=== PATIENT | female | born 1995 | race Caucasian/White ===

== ENCOUNTER → 2023-06-21 14:37 | Outpatient (BNVA) | payer BC, MEDICAID, SELFPAY | PROVIDERS: PCP Family Medicine; Visit Provider Obstetrics & Gynecology | DX: Z34.01 Encounter for supervision of normal first pregnancy, first trimester (principal) | CPT/HCPCS: 76801 ==

== ENCOUNTER → 2023-06-23 13:00 | Outpatient (BNVA) | payer BC, MEDICAID, SELFPAY | PROVIDERS: PCP Family Medicine; Visit Provider Obstetrics & Gynecology | DX: Z34.80 Encounter for supervision of other normal pregnancy, unspecified trimester | CPT/HCPCS: 80307; 83036; 84315; 85025; 86592; 86762; 86803; 86850; 86900; 87086; 87340; 87491; 87591; 87624; 87806 ==

== ENCOUNTER → 2023-07-19 15:45 | Outpatient (BNVA) | payer BC, MEDICAID, SELFPAY | PROVIDERS: PCP Family Medicine; Visit Provider Nurse Practitioner Women's Health | DX: Z34.90 Encounter for supervision of normal pregnancy, unspecified, unspecified trimester (principal); Z3A.00 Weeks of gestation of pregnancy not specified | CPT/HCPCS: 82105; 84315 ==

== ENCOUNTER → 2023-08-07 13:03 | Outpatient (BNVA) | payer BC, MEDICAID, SELFPAY | PROVIDERS: PCP Family Medicine; Visit Provider Obstetrics & Gynecology | DX: Z34.01 Encounter for supervision of normal first pregnancy, first trimester (principal) | CPT/HCPCS: 82105 ==

== ENCOUNTER → 2023-08-17 09:25 | Outpatient (BNVA) | payer BC, MEDICAID, SELFPAY | PROVIDERS: PCP Family Medicine; Visit Provider Nurse Practitioner Women's Health | DX: Z34.90 Encounter for supervision of normal pregnancy, unspecified, unspecified trimester (principal) | CPT/HCPCS: 76805 ==

== ENCOUNTER → 2023-09-20 08:45 | Outpatient (BNVA) | payer BC, MEDICAID, SELFPAY | PROVIDERS: PCP Family Medicine; Visit Provider Obstetrics & Gynecology | DX: Z36.87 Encounter for antenatal screening for uncertain dates (principal) | CPT/HCPCS: 76816 ==

== ENCOUNTER → 2023-09-22 09:38 | Outpatient (BNVA) | payer BC, MEDICAID, SELFPAY | PROVIDERS: PCP Family Medicine; Visit Provider Nurse Practitioner Women's Health | DX: Z34.01 Encounter for supervision of normal first pregnancy, first trimester (principal); Z34.90 Encounter for supervision of normal pregnancy, unspecified, unspecified trimester | CPT/HCPCS: 81000; 82950 ==

== ENCOUNTER → 2023-10-05 14:39 | Outpatient (BNVA) | payer BC, MEDICAID, SELFPAY | PROVIDERS: PCP Family Medicine; Visit Provider Obstetrics & Gynecology | DX: Z34.01 Encounter for supervision of normal first pregnancy, first trimester (principal) | CPT/HCPCS: 80053; 85025 ==

== ENCOUNTER → 2023-10-13 08:46 | Outpatient (BNVA) | payer BC, MEDICAID, SELFPAY | PROVIDERS: PCP Family Medicine; Visit Provider Obstetrics & Gynecology | DX: Z34.90 Encounter for supervision of normal pregnancy, unspecified, unspecified trimester (principal) | CPT/HCPCS: 81000; 85025 ==

== ENCOUNTER → 2023-11-24 08:01 | Outpatient (BNVA) | payer BC, MEDICAID, SELFPAY | PROVIDERS: PCP Family Medicine; Visit Provider Nurse Practitioner Women's Health | DX: Z34.80 Encounter for supervision of other normal pregnancy, unspecified trimester (principal) | CPT/HCPCS: 80053; 82570; 84156; 84315; 84550; 85025 ==

== ENCOUNTER 2023-11-26 07:52 | Observation (INO) | payer BC, MEDICAID, SELFPAY ==
[2023-11-25] VITALS (20 sets, daily range): BP systolic 116–133; BP diastolic 57–83; PULSE 82–112; RESP 16–18; O2SAT 96–98; BMI 28.3
--- NOTE | 2023-11-25 17:12 | USR_ITS ---
PROCEDURE INFORMATION: Exam: US Abdomen, Limited; Right Upper Quadrant Exam date and time: 11/25/2023 6:00 PM Age: 28 years old Clinical indication: Abdominal pain; Generalized; ; Prior surgery; Surgery date: 6+ months; Surgery type: HX of appendectomy; Additional info: Right upper quadrant abdominal pain TECHNIQUE: Imaging protocol: Real time ultrasound of the abdomen with image documentation. Limited exam focused on the right upper quadrant. COMPARISON: [place] [id number] 09/20/2023 8:53 AM FINDINGS: Liver: Liver is enlarged measuring 17 cm. The liver is otherwise unremarkable. Gallbladder: The gallbladder is contracted. Gallbladder wall measures 3 mm. Echogenic ovoid structure in the gallbladder neck, only visualized on the decubitus views. Biliary ducts: There is no evidence of biliary ductal dilation. CBD measures 0.3 cm. Pancreas: Pancreas is obscured by bowel gas. Right kidney: Right kidney measures 10.4 cm. Right kidney has a normal corticomedullary differentiation and parenchymal echogenicity. Mild right kidney pelviectasis. There is no evidence of right hydronephrosis. Portal venous: Portal vein is patent with adequate hepatopedal flow. US/US gall bladder [id number] IMPRESSION: 1. Echogenic ovoid structure in the gallbladder neck, only visualized on the decubitus views. Concerning for a gallstone. 2. Although the mild gallbladder wall thickening is likely related to gallbladder under distension, the presence of a possible gallstone raises the question of early cholecystitis. Close follow-up is advised. 3. Hepatomegaly. 4. Mild right kidney pelviectasis. This is likely related.
[2023-11-25] MEDS: lactated ringers 1,000 ML 999 ML IV (17:30)
[2023-11-25 17:40] LABS: Add Urine Microscopic? NO; Charge for UA Resulting for Rev
[2023-11-25] MEDS: acetaminophen 500 mg Tablet 1000 MG PO (17:40)
[2023-11-25 17:44] LABS: Bilirubin Urine Neg (Negative); Blood Urine Neg (Negative); Glucose Urine UA Norm (Normal); Ketones Urine Negative (Negative); Leukocyte Esterase Urine Negative (Negative); Nitrate Urine Negative (Negative); Protein Urine Neg (Negative); Specific Gravity, Urine 1.005 (1.005-1.030); Urine Appearance Clear (CLEAR); Urine Color Yellow (Yellow); Urobilinogen Urine Norm (Negative); pH Urine 7 (5-7)
[2023-11-25] MEDS: ondansetron 2 mg/ML SDV 2 mL 4 MG IVP (18:27)
[2023-11-25 18:45] LABS: Alanine Aminotransferase 14 U/L (0-33); Albumin Level 3.5 g/dL (3.5-5.2); Alkaline Phosphatase 127 U/L (35-105); Anion Gap 15.1 (5-19); Aspartate Amino Transferase 26 U/L (0-32); Blood Urea Nitrogen 5 mg/dL (6-20); Calcium 8.3 mg/dL (8.5-10.5); Carbon Dioxide 21 mmol/L (22-29); Chloride 107 mmol/L (98-107); Creatinine Clr Calc Pharmacy 216.9276; Glomerular Filtration Rate 191.5 mL/min (90-130); Glucose 88 mg/dL (65-115); Osmolality Calculated 285 mOsm/kg (285-295); Potassium 4.1 mmol/L (3.5-5.1); Sodium 139 mmol/L (136-145); Total Bilirubin 0.5 mg/dL (0.15-1.2); Total Protein 6.5 g/dL (6.6-8.7)
[2023-11-25] MEDS: NIFEdipine 10 mg Capsule 30 MG PO (19:21)
[2023-11-25] MEDS: fentaNYL 50 mcg/mL INJ 2mL IVP ×4 (19:45→23:26)
[2023-11-26] VITALS (10 sets, daily range): BP systolic 108–124; BP diastolic 55–76; PULSE 65–96; RESP 16–18; TEMP 36.8
[2023-11-26] MEDS: acetaminophen 500 mg Tablet 1000 MG PO (05:02)
== END 2023-11-26 10:43 | disposition home or self-care (01) ==
LOC: OPOB 07:56 → OBGYN 07:56
PROVIDERS: Admitting Provider Obstetrics & Gynecology; PCP Family Medicine; Visit Provider Obstetrics & Gynecology
DX: R10.11 Right upper quadrant pain (principal); K82.9 Disease of gallbladder, unspecified
CPT/HCPCS: 36415; 59025; 76705; 80053; 81003; 96374; 96376; 99211; G0378; J2405; J3010; J7120

== ENCOUNTER → 2023-12-08 07:51 | Outpatient (BNVA) | payer BC, MEDICAID, SELFPAY | PROVIDERS: PCP Family Medicine; Visit Provider Obstetrics & Gynecology | DX: Z34.01 Encounter for supervision of normal first pregnancy, first trimester (principal) | CPT/HCPCS: 80053; 84315; 85025; 87081 ==

== ENCOUNTER 2023-12-22 09:30 | Outpatient (CLI) | payer BC, MEDICAID, SELFPAY ==
[2023-12-22] VITALS (8 sets, daily range): BP systolic 138–152; BP diastolic 73–97; PULSE 53–64; BMI 29.7
--- NOTE | 2023-12-22 10:10 | USR_ITS ---
PROCEDURE INFORMATION: Exam: US Biophysical Profile Without Non-Stress Test Exam date and time: 12/22/2023 10:40 AM Age: 28 years old Clinical indication: Pancreas blood pressure; TECHNIQUE: Imaging protocol: US biophysical profile without non-stress testing. COMPARISON: [place] [id number] 09/20/2023 8:53 AM FINDINGS: Single, live intrauterine gestation with heart rate of 147 bpm. The maximum vertical pocket of amniotic fluid is 3.2 cm. There is normal extremity motion and tone. There is poor breathing motion. US/US OB BPP wo NST [id number] IMPRESSION: 1. Single, live intrauterine gestation. 2. Biophysical profile 11/17.
[2023-12-22 10:19] LABS: Basophils % 0.3 %; Eosinophils # 0.1 10^3/uL (0.0-0.8); Eosinophils % 0.8 %; Hematocrit 39.3 % (36-47); Lymphocytes # 1.2 10^3/uL (0.8-4.8); Lymphocytes % 13.3 %; Mean Corpuscular HGB Conc 32.6 g/dL (30-55); Mean Corpuscular Volume 92.3 fl (85-98); Mean Platelet Volume 11.7 fL (7.4-10.4); Monocytes # 0.6 10^3/uL (0.2-0.9); Monocytes % 6.2 %; Neutrophils % 78.9 %; Nucleated Red Blood Cells % 0 %; Platelet Count 143 10^3/cmm (157-399); Red Blood Count 4.26 10^6/uL (3.85-5.65); Red Cell Distribution Width 13.6 % (12.1-15.1); White Blood Count 9.25 10^3/uL (3.29-11.43)
[2023-12-22 10:26] LABS: Bilirubin Urine Neg (Negative); Blood Urine Neg (Negative); Glucose Urine UA Norm (Normal); Ketones Urine Negative (Negative); Leukocyte Esterase Urine Negative (Negative); Nitrate Urine Negative (Negative); Protein Urine 2+ (Negative); Urine Appearance Clear (CLEAR); Urine Color Yellow (Yellow); Urobilinogen Urine Neg (Negative); pH Urine 7 (5-7)
[2023-12-22 10:27] LABS: RBC Urine 0-4 /hpf (0-2); WBC Urine 0-4 /hpf (0-5)
[2023-12-22 10:28] LABS: Bacteria Urine 1+ /hpf
[2023-12-22 10:29] LABS: Add Urine Culture? No; Mucus Urine TRACE /hpf
[2023-12-22 10:35] LABS: Alanine Aminotransferase 7 U/L (0-33); Albumin Level 3.5 g/dL (3.5-5.2); Alkaline Phosphatase 139 U/L (35-105); Anion Gap 14.2 (5-19); Aspartate Amino Transferase 20 U/L (0-32); Blood Urea Nitrogen 8 mg/dL (6-20); Calcium 8.6 mg/dL (8.5-10.5); Carbon Dioxide 22 mmol/L (22-29); Chloride 107 mmol/L (98-107); Globulin 3.2 g/dL (1.3-4.6); Glomerular Filtration Rate 100.4 mL/min (90-130); Glucose 79 mg/dL (65-115); Osmolality Calculated 285 mOsm/kg (285-295); Potassium 4.2 mmol/L (3.5-5.1); Sodium 139 mmol/L (136-145); Total Bilirubin 0.5 mg/dL (0.15-1.2); Total Protein 6.7 g/dL (6.6-8.7); Uric Acid 4.5 mg/dL (2.4-5.7)
[2023-12-22 10:38] LABS: Urine Creatinine 135 mg/dL (28-217)
[2023-12-22 10:41] LABS: UPRO/UCREAT Ratio 0.76 mg/mg CR; Urine Protein Random 103 mg/dL
[2023-12-22] MEDS: NIFEdipine 10 mg Capsule 30 MG PO (11:27)
== END 2023-12-22 11:35 | disposition home or self-care (01) ==
LOC: OPOB 09:33 → OBGYN 09:34
PROVIDERS: PCP Family Medicine; Visit Provider Obstetrics & Gynecology
DX: O16.9 Unspecified maternal hypertension, unspecified trimester (principal); Z3A.00 Weeks of gestation of pregnancy not specified
CPT/HCPCS: 36415; 59025; 76819; 80053; 81001; 82570; 84156; 84315; 84550; 85025; 99211

== ENCOUNTER 2023-12-23 21:43 | Inpatient (IN) | payer BC, MEDICAID, SELFPAY ==
[2023-12-23] VITALS (11 sets, daily range): BP systolic 131–142; BP diastolic 83–98; PULSE 62–92; RESP 18; TEMP 36.3; BMI 29.9
[2023-12-23 23:24] LABS: Basophils % 0.2 %; Eosinophils # 0.1 10^3/uL (0.0-0.8); Eosinophils % 0.8 %; Hematocrit 36.6 % (36-47); Lymphocytes # 1.4 10^3/uL (0.8-4.8); Lymphocytes % 15.1 %; Mean Corpuscular HGB Conc 32.8 g/dL (30-55); Mean Corpuscular Hemoglobin 30.1 pg (27-33); Mean Corpuscular Volume 91.7 fl (85-98); Mean Platelet Volume 11.9 fL (7.4-10.4); Monocytes # 0.7 10^3/uL (0.2-0.9); Monocytes % 7.2 %; Neutrophils # 6.96 10^3/uL (1.8-7.7); Neutrophils % 76.4 %; Nucleated Red Blood Cells % 0 %; Platelet Count 148 10^3/cmm (157-399); Red Blood Count 3.99 10^6/uL (3.85-5.65); Red Cell Distribution Width 13.6 % (12.1-15.1); White Blood Count 9.12 10^3/uL (3.29-11.43)
[2023-12-24] VITALS (47 sets, daily range): BP systolic 127–178; BP diastolic 69–98; PULSE 58–93; TEMP 36.1–36.9
[2023-12-24] MEDS: miSOPROStol 100 mcg tablet 25 MCG VAGINAL ×3 (00:07→19:25)
[2023-12-24] MEDS: lactated ringers 1,000 ML 999 ML IV (05:50)
--- NOTE | 2023-12-24 08:22 | PM.OPHPUD ---
Labor & Delivery H&P Update Date of Procedure: December 24, 2023 Date H&P Performed: 12/22/23 H&P update information: I have reviewed H&P completed within last 30 days, I have examined patient prior to procedure and No changes to prior documentation Admission Diagnosis:
[2023-12-24] MEDS: ondansetron 2 mg/ML SDV 2 mL 4 MG IVP (08:38)
[2023-12-25] VITALS (101 sets, daily range): BP systolic 117–165; BP diastolic 61–102; PULSE 60–133; RESP 16–18; TEMP 35.7–37; O2SAT 95–99
[2023-12-25] MEDS: fentaNYL 50 mcg/mL INJ 2mL IVP ×2 (01:45→16:57)
[2023-12-25] MEDS: lactated ringers 1,000 ML 999 ML IV ×2 (06:24→16:56)
[2023-12-25] MEDS: ROPivacaine syringe 100 MG/50 ML SYRINGE 11 MG EPIDURAL (07:43)
--- NOTE | 2023-12-25 08:10 | P.ANESASSM_ITS ---
Pre-Anesthetic Assessment Height/Weight: Height 1.65 m Weight 81.647 kg Temp Pulse Resp BP Pulse Ox O2 Del Method 97.2 F L 77 18 123/75 98 Room Air 12/25/23 07:09 12/25/23 08:06 12/25/23 04:00 12/25/23 08:06 12/25/23 07:52 12/25/23 06:26 Social No alcohol and No tobacco Exam alert, oriented x 3, clear to auscultation bilaterally and regular rate & rhythm Airway Submandibular: within normal limits Cervical ROM: within normal limits Mallampati: Class I Anesthetic Plan ASA status: 2E Anesthesia: Regional (specify below) Other: labor epidural Medications/Allergies Home Medications Medication Instructions Recorded Confirmed Last Taken Type docosahexaenoic acid 200 mg 200 mg PO DAILY 05/23/23 12/24/23 12/23/23 19:00 History capsule ( DHA) promethazine 25 mg tablet 25 mg PO Q6H PRN nausea and 07/19/23 12/24/23 12/23/23 19:00 Rx vomiting #30 tabs valacyclovir 1 gram tablet 1,000 mg PO DAILY #90 tabs 07/19/23 12/24/23 12/23/23 19:00 Rx (Valtrex) pantoprazole 40 mg tablet,delayed 40 mg PO BID #60 tabs 11/24/23 12/24/23 12/23/23 19:00 Rx release (Protonix) Allergies Allergy/AdvReac Type Severity Reaction Status Date / Time No Known Allergies Allergy Unverified 12/22/23 07:33 Current Medications Generic Name Dose Route Start Last Admin Trade Name Lola PRN Reason Stop Dose Admin Fentanyl 25 - 100 mcg 12/23/23 23:00 12/25/23 01:45 Fentanyl 50 Mcg/Ml Inj 2ml IVP 25 mcg Q1H PRN Administration SEVERE PAIN Lactated Ringer's 1,000 mls @ 999 mls/hr 12/23/23 23:19 12/24/23 06:10 Lactated Ringers IV 0 mls/hr .Q1H1M PRN Infusion Per L&D Rescitation Protocol Lactated Ringer's 1,000 mls @ 999 mls/hr 12/25/23 06:14 12/25/23 06:24 Lactated Ringers IV 999 mls/hr .Q1H1M PRN Administration See label comments Ropivacaine 100 mg in 50 mls @ 10 mls/hr 12/25/23 06:15 12/25/23 07:43 Naropin Syringe EPIDURAL 11 mls/hr .Q5H PB Administration Ondansetron HCl 4 mg 12/23/23 22:57 12/24/23 08:38 Ondansetron 2 Mg/Ml Sdv 2 Ml IVP 4 mg Q4H PRN Administration NAUSEA AND VOMITING PFSH Anesthesia Medical History Anxiety On and off since the ulnar deviation and hydroxyzine helps her sleep. No pertinent past medical history Denies diabetes, asthma, hypertension, seizures, DVT/PE PCP: [facility] Surgical History S/P appendectomy Laparoscopic procedure in [address] Pereira [place] [facility] [place] Family History Father Hypertension Diabetes Mother Hypertension Ovarian cancer Grandmother Colon cancer Maternal, age at diagnosis unknown. at age 82. Denies family history of Prostate cancer Heart disease Hyperlipidemia Breast cancer Uterine cancer Thyroid disease Stroke Social History Smoking and tobacco/nicotine status: never used tobacco/nicotine Female Reproductive History : 1 Data Anesthesia 12/23/23 23:05 Short CBC 12/23/23 Range/Units 23:05 WBC 9.12 (3.29-11.43) 10^3/uL Hgb 12.00 (11.27-16.99) g/dL Hct 36.6 (36-47) % MCV 91.7 (85-98) fl Plt Count 148 L (157-399) 10^3/cmm Neut % (Auto) 76.4 % Neut # (Auto) 6.96 (1.8-7.7) 10^3/uL Blood Bank 12/23/23 23:05 Blood Type O Positive Rho(D) Type Rh positive Antibody Screen Negative Cardiac Studies: 2 No Data to Display
--- NOTE | 2023-12-25 08:11 | ANES.PROC ---
Anesthesia Procedures Procedure/Date: 12/25/23 Epidural: Time Out Performed: Yes Consents Signed: Procedure Consent Consent: from patient Lumbar Level: L3-L4 Epidural position: sitting Epidural procedure: sterile prep of area, 1% lidocaine to numb the area, negative for paresthesia passed, neg for paresthesia, test dose given, no systemic response and sterile dressing applied
--- NOTE | 2023-12-25 09:19 | PM.MISC ---
Miscellaneous Note Purpose of Documentation: ctsp as she had not gotten comfortable after epid placement. Noted to have some fluid under epid catheter dressing and no difference to alcohol testing. Patient initially said to be 5 cm but on last check was apparently 3 cm. Discussed with patient that I thought best option was to remove and replace catheter. She would like to be able to move around a bit and opted to remove catheter and then replace at later time. Epidural catheter removed with intact tip.
[2023-12-25] MEDS: oxytocin 30 UNIT/500 ML BAG IV (11:30)
--- NOTE | 2023-12-25 13:03 | PC.NURSE ---
Dr. Arrington notified pt not getting relied from epidural despite bolus and position changes. On his way to assess
[2023-12-25] MEDS: dextrose 5%-lactated ringers 1,000 ML 125 ML IV (13:30)
[2023-12-25] MEDS: ondansetron 2 mg/ML SDV 2 mL 4 MG IVP (13:33)
--- NOTE | 2023-12-25 17:51 | ANES.PROC ---
Anesthesia Procedures Procedure/Date: 12/26/23 Epidural: Time Out Performed: Yes Consents Signed: Procedure Consent and NPO Consent Consent: requested by attending/covering physician, from patient, risks and benefits reviewed and patient agrees to proceed Lumbar Level: L2-L3 Epidural position: sitting Epidural procedure: sterile prep of area (betadine), 1% lidocaine to numb the area (3 mLs), neg for paresthesia, test dose given, 1.5% xylocaine 1:200k epi (3 mLs/ 2 mLs), 0.2% Ropivacaine bolus ml (5 mLs), placed PCEA, no systemic response, sterile dressing applied, L.U.D. no apparent complications and 0.2% Ropiavacaine @ mls/hr (13) Additional Comments: Attempt x2. MISHA at 5cm, catheter threaded to 11cm. Negative for CSF aspiration before and after test dose and start of infusion. ASSURANCE SOURCING MANAGER button within reach and patient educated on use. 0330: Called to patients room due to complaints of pain. Upon assessment, patient is complaining of pain in her left lower pelvic region. 100mcg fentanyl given via epidural. Negative aspiration for CSF. 0350: Patient states she had some relief from the fentanyl but is still experiencing lower left abdominal/pelvic pain with contractions. 8mL 2% PF lidocaine given via epidural in divided doses over 10 minutes. Negative for CSF aspiration. Patient states she is having relief from pain/contractions.
[2023-12-25] MEDS: ROPivacaine syringe 100 MG/50 ML SYRINGE 13 MG EPIDURAL ×2 (18:34→21:18)
[2023-12-25] MEDS: hyDROXYzine 25 mg Capsule 50 MG PO (19:41)
[2023-12-26] VITALS (75 sets, daily range): BP systolic 115–165; BP diastolic 66–96; PULSE 72–170; RESP 16–20; TEMP 36.6–39.9; O2SAT 92–99
[2023-12-26] MEDS: ROPivacaine syringe 100 MG/50 ML SYRINGE 13 MG EPIDURAL ×2 (00:31→03:11)
[2023-12-26] MEDS: dextrose 5%-lactated ringers 1,000 ML 125 ML IV (00:31)
[2023-12-26] MEDS: hyDROXYzine 25 mg Capsule 50 MG PO (01:10)
[2023-12-26] MEDS: morphine 4 mg/mL SDV 1 mL 8 MG IM (02:10)
[2023-12-26] MEDS: acetaminophen 325 mg Tablet 650 MG PO (02:10)
[2023-12-26] MEDS: promethazine 25 mg/mL SDV 1 mL IM (02:11)
[2023-12-26] MEDS: ondansetron 2 mg/ML SDV 2 mL 4 MG IVP (02:21)
[2023-12-26] MEDS: ampicillin 2,000 MG in sodium chloride 0.9% (plus) 50 ML 100 MG IV ×4 (02:23→23:14)
[2023-12-26] MEDS: acetaminophen 500 mg Tablet PO (04:58)
[2023-12-26] MEDS: dextrose 5%-lactated ringers 1,000 ML 999 ML IV (04:59)
--- NOTE | 2023-12-26 05:14 | P.PN_ITS ---
Subjective 2 Subjective: Mrs. Millan 28-year-old female G1, P0 with an estimated gestational age at 39 weeks, admitted for elective induction. Failure to progress. Vitals/I&O/Wt Last Vital Signs Temp 103.9 F H 12/26/23 04:30 Pulse 156 H 12/26/23 05:11 Resp 20 H 12/26/23 04:23 BP 151/89 12/26/23 04:59 Pulse Ox 97 12/26/23 05:11 O2 Del Method Room Air 12/25/23 21:00 12/25/23 12/25/23 12/26/23 14:59 22:59 06:59 Intake Total 1040.5 / 1040.5 1105.017 / 2145.517 1602.083 / 3747.600 Balance 1040.5 / 1040.5 1105.017 / 2145.517 1602.083 / 3747.600 Physical Exam 2 Narrative: GA: Alert and oriented ?3. Lungs: Clear to auscultation bilaterally. Heart: Regular rhythm and rate. Abdomen: Gravid, full the height equals dates, nontender. LOCKSTITCH WAISTLINE JOINER: SVE; dilation: 4 cm, effacement: 90%, station: , presentation: vx, membranes: AROM. Extremities: no edema, no cyanosis, no calves pain. heart tracing: Basal rate: 170 bpm, Variability: moderate, Accelerations: present, Decelerations: absent, Contraction: q3min. Urinary Catheter Management: Garcia: Cath Placed During This Visit: yes, but has since been removed by the nurse Reason for Continuing Indwelling Catheter: Required Immobilization for Trauma or Surgery or Anesthesia Urinary Catheter Date of Insertion: 12/25/23 Urinary Catheter Time of Insertion: 18:25 Date Urinary Catheter Removed: 12/25/23 Time Urinary Catheter Discontinued: 09:15 Data 12/26/23 20:37 12/26/23 09:00 A&P Assessment and plan (1) Term : Mrs. Monty Bermudez-year-old female G1, P0 with an estimated gestational age at 39 weeks, admitted for elective induction. Misoprostol was given follow-up with oxytocin. She had dilated to 4 cm 90% effacement without further progression. She has now developed chorioamnionitis. She refers she is exhausted and has requested a delivery. Ampicillin, clindamycin and gentamicin started. (2) Failure to progress in first stage of labor: (3) Chorioamnionitis: Temperature 103, tachycardia, maternal tachycardia Qualifiers: Fetus number: single or unspecified fetus Trimester: third trimester Qualified Code(s): O41.1230 - Chorioamnionitis, third trimester, not applicable or unspecified Plan Primary low-transverse delivery Attestations 2 Medical Necessity Statement*: In my professional opinion per admitting diagnosis Coding Level of Care Code Acute Code for Chg Fwd Diagnoses Term Z34.90 Failure to progress in first stage of labor O63.0 Chorioamnionitis in third trimester, single or unspecified fetus O41.1230 Fetus number: single or unspecified fetus Trimester: third trimester
[2023-12-26] MEDS: clindamycin 900 MG/50 ML PREMIX 100 MG IV ×3 (05:25→22:21)
[2023-12-26] MEDS: gentamicin inj 120 MG in sodium chloride 0.9% (100 ml) 100 ML 103 MG IV (05:37)
[2023-12-26] MEDS: famotidine 20 mg/2 mL INJ IVP (05:38)
[2023-12-26] MEDS: citric acid-sodium citrate 30 mL UDC PO (05:38)
[2023-12-26] MEDS: metoclopramide 5 mg/mL SDV 2 mL 10 MG IV (05:39)
[2023-12-26] MEDS: BUPIVACAINE LIPOSOME/PF 266 MG, BUPivacaine 0.25% 30 ML in sodium chloride 0.9% 50 ML 30 MG INFILTRATI (06:48)
[2023-12-26] MEDS: tranexamic acid 1,000 MG/100 ML PREMIX 600 MG IV (07:07)
[2023-12-26] MEDS: miSOPROStol 200 mcg Tablet 800 MCG PR (07:10)
--- NOTE | 2023-12-26 07:23 | P.OP_ITS ---
Operative Report Date of procedure: December 26, 2023 Pre-op diagnosis: Term Preeclampsia Failure to progress Chorioamnionitis Post-op diagnosis: same Procedure done: Primary low-transverse delivery Surgeon: Brian Melendez MD Estimated blood loss (mL): 800 Complications: None Findings: Term male infant weight [] Procedure: MAfter assuring informed consent, the patient was taken to the operating room and anesthesia was initiated. She was placed in the dorsal supine position with a left lateral tilt. The abdomen was prepped and draped in the usual sterile manner. A time-out procedure was performed. Preop antibiotics was administered. A Pfannenstiel skin incision was made with the scalpel and carried through to the underlying layer of fascia with the Bovie. The fascia was nicked in the midline and the incision extended laterally with the Potter scissors. The superior aspect of the fascial incision was then grasped with Jv clamps and elevated and the underlying rectus muscle dissected off bluntly. Attention was then turned to the inferior aspect of the incision which, in similar fashion, was grasped and tented up with Jv clamps and the rectus m uscle dissected bluntly. The rectus muscles were then in the midline and the peritoneum identified, tented up and entered sharply with Metzenbaum scissors. The peritoneal incision was then extended superiorly and inferiorly with good visualization of the bladder. The Alireza O retractor was then inserted and the vesicouterine peritoneum identified, grasped with pickups and entered sharply with Metzenbaum scissors. This incision was then extended laterally and the bladder flap created digitally. The uterus incised in a low transverse fashion with the scalpel. The uterine incision was then extended with the bandage scissors. The was then delivered in the cephalic presentation atraumatically at []. The nose and the mouth were suctioned with bulb and the cord clamped and cut. The cord was normal and had three vessels. Amniotic fluid was clear. The placenta was then removed manually and the uterus exteriorized and cleared of all clots and debris. The uterine incision was repaired with 0 Vicryl in a running-locked fashion. A second layer of the same suture was used to obtain excellent hemostasis. The gutters were cleared of all clots. The uterus was then returned to the abdomen. The rectus muscles were approximated with 3-0 chromic gut. The ON-Q pain management system placed. The fascia was reapproximated with 0 Vicryl in an interrupted running fashion. The skin was closed with Insorb?s subcuticular absorbable robert. The patient tolerated the procedure well. The sponge, lap and needle counts were correct times three.
[2023-12-26] MEDS: HYDROcodone-acetaminophen 5-325 mg Tablet PO ×3 (08:50→22:21)
[2023-12-26 10:54] LABS: Basophils % 0.2 %; Hematocrit 29.2 % (36-47); Lymphocytes # 0.3 10^3/uL (0.8-4.8); Lymphocytes % 1.6 %; Mean Corpuscular HGB Conc 31.8 g/dL (30-55); Mean Corpuscular Volume 94.2 fl (85-98); Mean Platelet Volume 11.8 fL (7.4-10.4); Monocytes # 1.1 10^3/uL (0.2-0.9); Monocytes % 5.4 %; Neutrophils # 18.05 10^3/uL (1.8-7.7); Neutrophils % 92.1 %; Nucleated Red Blood Cells % 0 %; Platelet Count 128 10^3/cmm (157-399); Red Cell Distribution Width 13.7 % (12.1-15.1); White Blood Count 19.58 10^3/uL (3.29-11.43)
[2023-12-26 11:03] LABS: Creatinine Clr Calc Pharmacy 111.4894
[2023-12-26] MEDS: ketorolac 30 mg/mL INJ IVP ×2 (12:48→18:04)
--- NOTE | 2023-12-26 15:16 | W.PM.NPUH&PS ---
Providers/Chief Complaint Admitting Physician: Brian Melendez MD Primary Care Provider: Kris Salomon MD Chief Complaint: induction HPI NPU History of Present Illness Aisha De La Cruz is a 28 year old female who presented to [facility] secondary to failure to progress in a term with decision for . Meds NPU Home Medications Medication Instructions Recorded Confirmed Last Taken Type docosahexaenoic acid 200 mg 200 mg PO DAILY 05/23/23 12/24/23 12/23/23 19:00 History capsule ( DHA) promethazine 25 mg tablet 25 mg PO Q6H PRN nausea and 07/19/23 12/24/23 12/23/23 19:00 Rx vomiting #30 tabs valacyclovir 1 gram tablet 1,000 mg PO DAILY #90 tabs 07/19/23 12/24/23 12/23/23 19:00 Rx (Valtrex) pantoprazole 40 mg tablet,delayed 40 mg PO BID #60 tabs 11/24/23 12/24/23 12/23/23 19:00 Rx release (Protonix) Allergies Allergy/AdvReac Type Severity Reaction Status Date / Time No Known Allergies Allergy Unverified 12/22/23 07:33 PFSH NPU PFSH: Medical History Anxiety On and off since the ulnar deviation and hydroxyzine helps her sleep. No pertinent past medical history Denies diabetes, asthma, hypertension, seizures, DVT/PE PCP: [facility] Surgical History S/P appendectomy [place]ar[place] [address] [place] [facility] [place] Family History Father Hypertension Diabetes Mother Hypertension Ovarian cancer Grandmother Colon cancer Maternal, age at diagnosis unknown. at age 82. Denies family history of Prostate cancer Heart disease Hyperlipidemia Breast cancer Uterine cancer Thyroid disease Stroke Social History Smoking and tobacco/nicotine status: never used tobacco/nicotine Female Reproductive History: : 1 Vitals/I&O/Wt Last Vital Signs Temp 103.9 F H 12/26/23 04:30 Pulse 144 H 12/26/23 05:45 Resp 20 H 12/26/23 04:23 BP 140/85 12/26/23 05:45 Pulse Ox 93 12/26/23 05:45 O2 Del Method Room Air 12/25/23 21:00 12/26/23 12/26/23 12/26/23 06:59 14:59 22:59 Intake Total 1647.932 / 3793.449 1836.9 / 1836.9 Output Total 500 / 500 Balance 1647.932 / 3793.449 1336.9 / 1336.9 Physical Exam Urinary Catheter Management: Garcia: Cath Placed During This Visit: yes, but has since been removed by the nurse Reason for Continuing Indwelling Catheter: Perioperative Use in Selected Surgeries Urinary Catheter Date of Insertion: 12/25/23 Urinary Catheter Time of Insertion: 18:25 Date Urinary Catheter Removed: 12/25/23 Time Urinary Catheter Discontinued: 09:15 Data NPU 12/26/23 09:00 12/26/23 09:00 Coding Level of Care Code Acute Code for Chg Samy
[2023-12-26] MEDS: docusate sodium 100 mg Capsule PO (18:04)
[2023-12-26] MEDS: ferrous sulfate EC 325 mg Tablet PO (18:04)
[2023-12-26 20:51] LABS: Mean Corpuscular HGB Conc 32.6 g/dL (30-55); Mean Corpuscular Hemoglobin 30.1 pg (27-33); Mean Corpuscular Volume 92.5 fl (85-98); Mean Platelet Volume 11.3 fL (7.4-10.4); Platelet Count 134 10^3/cmm (157-399); Red Blood Count 2.92 10^6/uL (3.85-5.65); Red Cell Distribution Width 13.8 % (12.1-15.1); White Blood Count 24.96 10^3/uL (3.29-11.43)
[2023-12-26] MEDS: simethicone 80 mg Chew PO (22:42)
[2023-12-27] MEDS: ketorolac 30 mg/mL INJ IVP (01:49)
[2023-12-27] MEDS: dextrose 5%-lactated ringers 1,000 ML 125 ML IV (01:49)
[2023-12-27 02:10] VITALS: TEMP 37.5
[2023-12-27 02:55] VITALS: TEMP 36.9
[2023-12-27 04:00] VITALS: BP 133/89; PULSE 90; RESP 16; TEMP 37.1; O2SAT 97
[2023-12-27] MEDS: HYDROcodone-acetaminophen 5-325 mg Tablet PO ×4 (05:17→19:10)
[2023-12-27] MEDS: ampicillin 2,000 MG in sodium chloride 0.9% (plus) 50 ML 100 MG IV ×4 (05:18→23:03)
[2023-12-27] MEDS: clindamycin 900 MG/50 ML PREMIX 100 MG IV (07:44)
--- NOTE | 2023-12-27 09:41 | PC.NURSE ---
Patient's IV wrapped at this time. Patient instructed to remove bandage in shower.
[2023-12-27 09:42] LABS: Gentamicin Trough 1.1 ug/mL (0.0-8.0)
--- NOTE | 2023-12-27 09:58 | P.PN_ITS ---
Subjective 2 Subjective: Mrs. Millan 28-year-old female G1, P1 status post primary low-transverse delivery. Better than yesterday Vitals/I&O/Wt Last Vital Signs Temp 98.8 F 12/27/23 04:00 Pulse 90 12/27/23 04:00 Resp 16 12/27/23 04:00 BP 133/89 12/27/23 04:00 Pulse Ox 97 12/27/23 04:00 O2 Del Method Room Air 12/27/23 04:00 12/26/23 12/27/23 12/27/23 22:59 06:59 14:59 Intake Total 150 / 3336.9 200 / 3536.9 50 / 50 Output Total 425 / 2025 850 / 2875 Balance -275 / 1311.9 -650 / 661.9 50 / 50 Physical Exam 2 Narrative: GA; alert and oriented x 3 HEENT: normal Breasts: engorged Nipples - skin intact Lungs; clear to auscultation Heart: regular rhythm, no murmurs. Abd: Appropriately tender. BS+. Uterine fundus below umbilicus. No Fundal Tenderness, minimal tenderness, incision clean and dry, no redness, pain or edema Perineum: normal lochia. Extremities: no edema, no cyanosis, no tenderness. Urinary Catheter Management: Garcia: Cath Placed During This Visit: yes, but has since been removed by the nurse Reason for Continuing Indwelling Catheter: Perioperative Use in Selected Surgeries Urinary Catheter Date of Insertion: 12/25/23 Urinary Catheter Time of Insertion: 18:25 Date Urinary Catheter Removed: 12/25/23 Time Urinary Catheter Discontinued: 09:15 Data 12/26/23 20:37 12/26/23 09:00 A&P Assessment and plan (1) delivery, delivered, current hospitalization: Mrs. Millan 28-year-old G1, P1 status post primary low-transverse delivery postoperative day 1. and overnight observation uneventful. She is afebrile hemodynamically stable postoperative day 1. Patient refers feeling better than yesterday. She has been to a very emotional traumatic experience after delivery due to her father's passing after visiting her. She had also lost her mother the week before. Psychiatry consult requested. Plan Continue postop observation Attestations 2 Medical Necessity Statement*: In my professional opinion per admitting diagnosis. Coding Level of Care Code Acute Code for Chg Fwd Diagnoses delivery, delivered, current hospitalization O82
[2023-12-27] MEDS: docusate sodium 100 mg Capsule PO ×2 (10:43→18:33)
[2023-12-27] MEDS: PRENATAL VIT NO.130/IRON/FOLIC 1 EACH TABLET PO (10:43)
[2023-12-27] MEDS: ferrous sulfate EC 325 mg Tablet PO ×2 (10:43→18:33)
[2023-12-27 11:00] VITALS: BP 150/101; PULSE 114; RESP 18; TEMP 38.3; O2SAT 96
[2023-12-27 12:49] LABS: Gentamicin Peak 4.5 ug/mL (2.0-8.0)
[2023-12-27] MEDS: ibuprofen 800 mg tablet PO ×2 (14:54→21:27)
[2023-12-27 16:00] VITALS: BP 125/89; PULSE 98; RESP 18; TEMP 37.2
[2023-12-27 22:13] VITALS: BP 135/84; PULSE 76; RESP 16; TEMP 36.6; O2SAT 98
[2023-12-28] VITALS (22 sets, daily range): BP systolic 127–163; BP diastolic 10–108; PULSE 65–89; RESP 14–16; TEMP 36.6–37; O2SAT 97–100
[2023-12-28] MEDS: ampicillin 2,000 MG in sodium chloride 0.9% (plus) 50 ML 100 MG IV ×4 (05:22→23:00)
[2023-12-28] MEDS: HYDROcodone-acetaminophen 5-325 mg Tablet PO ×4 (05:26→23:00)
[2023-12-28] MEDS: ferrous sulfate EC 325 mg Tablet PO ×2 (08:22→20:36)
[2023-12-28] MEDS: docusate sodium 100 mg Capsule PO ×2 (08:22→20:36)
[2023-12-28] MEDS: ibuprofen 800 mg tablet PO ×3 (08:22→20:36)
[2023-12-28] MEDS: PRENATAL VIT NO.130/IRON/FOLIC 1 EACH TABLET PO (08:22)
[2023-12-28] MEDS: labetalol 5 mg/mL SDV 20mL 20 MG IVP (08:58)
[2023-12-28] MEDS: dextrose 5%-lactated ringers 1,000 ML 125 ML IV (10:28)
--- NOTE | 2023-12-28 12:41 | P.PN_ITS ---
Subjective 2 Subjective: Mrs. Millan 28-year-old female G1, P1 status post primary low-transverse delivery day 2. Better than yesterday Vitals/I&O/Wt Last Vital Signs Temp 97.9 F 12/28/23 12:41 Pulse 65 12/28/23 12:41 Resp 15 12/28/23 12:41 BP 135/84 12/28/23 12:41 Pulse Ox 97 12/28/23 12:41 O2 Del Method Room Air 12/28/23 12:41 12/27/23 12/28/23 12/28/23 22:59 06:59 14:59 Intake Total 150 / 1350 2200 / 3550 320.833 / 320.833 Balance 150 / 900 2200 / 3100 320.833 / 320.833 Physical Exam 2 Narrative: GA; alert and oriented x 3 HEENT: normal Breasts: engorged Nipples - skin intact Lungs; clear to auscultation Heart: regular rhythm, no murmurs. Abd: Appropriately tender. BS+. Uterine fundus below umbilicus. No Fundal Tenderness, minimal tenderness, incision clean and dry, no redness, pain or edema Perineum: normal lochia. Extremities: no edema, no cyanosis, no tenderness. Urinary Catheter Management: Garcia: Cath Placed During This Visit: yes, but has since been removed by the nurse Reason for Continuing Indwelling Catheter: Decision to DC Catheter Urinary Catheter Date of Insertion: 12/25/23 Urinary Catheter Time of Insertion: 18:25 Date Urinary Catheter Removed: 12/27/23 Time Urinary Catheter Discontinued: 08:15 Data 12/26/23 20:37 12/26/23 09:00 A&P Assessment and plan (1) delivery, delivered, current hospitalization: Mrs. Millan 28-year-old G1, P1 status post primary low-transverse delivery postoperative day 1. and overnight observation uneventful. She is afebrile hemodynamically stable postoperative day 2. Patient refers feeling better than yesterday. She has not been 48 hours afebrile. Plan Continue postop observation Plan discharge home tomorrow Attestations 2 Medical Necessity Statement*: In my professional opinion per admitting diagnosis. Coding Level of Care Code Acute Code for Chg Fwd Diagnoses delivery, delivered, current hospitalization O82
[2023-12-28] MEDS: lanolin oint 7 gm 1 APPLIC TOPICAL (14:20)
[2023-12-28 19:31] LABS: Gentamicin Trough 1.1 ug/mL (0.0-8.0)
[2023-12-29 02:34] LABS: Gentamicin Trough 0.4 ug/mL (0.0-8.0)
[2023-12-29 02:36] VITALS: BP 136/87; PULSE 81; RESP 16; TEMP 36.7; O2SAT 99
[2023-12-29] MEDS: gentamicin inj 120 MG in sodium chloride 0.9% (100 ml) 100 ML 103 MG IV (03:15)
[2023-12-29] MEDS: ampicillin 2,000 MG in sodium chloride 0.9% (plus) 50 ML 100 MG IV (05:16)
[2023-12-29] MEDS: HYDROcodone-acetaminophen 5-325 mg Tablet PO (05:27)
[2023-12-29 05:34] VITALS: BP 141/89; PULSE 71; RESP 16; TEMP 36.7; O2SAT 96
[2023-12-29 06:15] LABS: Gentamicin Peak 3.9 ug/mL (2.0-8.0)
--- NOTE | 2023-12-29 07:21 | PM.OBGYDC ---
Discharge Providers FLAKE CUTTER OPERATOR Date of Admission: 12/24/23 10:00 Date of Discharge: 12/29/23 Attending Provider at Admission: Brian Melendez MD Attending Provider at Discharge: Brian Melendez MD Primary FLAKE CUTTER OPERATOR: Brian Melendez MD Primary Care Provider: Kris Salomon MD Diagnoses at Discharge Discharge Diagnosis (1) Term : Status: Acute (2) Failure to progress in first stage of labor: Status: Acute (3) Chorioamnionitis: Status: Acute Qualifiers: Fetus number: single or unspecified fetus Trimester: third trimester Qualified Code(s): O41.1230 - Chorioamnionitis, third trimester, not applicable or unspecified Reason for Visit Reason for Visit: induction Hospital Course Hospital Course Mrs. De La Cruz 28 y/o female IVF , admitted for induction due to preeclampsia, had a slow progress of labor, developed fever, tachycardia and maternal tachycardia suspected of chorioamnionitis she was started on triple antibiotics. The cervix dilated to 4 cm without further progress for over 4 hours and a primary low transverse caesarean delivery due to failure to progress and maternal request was performed without complications. She is postop day 3, afebrile for 48 hours and hemodynamically stable. Emotionnally she has been experiencing great stress as her mother had 6 days before delivery and her father also passed way the day of delivery after visiting her and the baby. She was visited by Psyc and crysis intervention but the patient refused assistance. Information Peripartum Data: Infant Delivery Method: Physical Exam Narrative: GA; alert and oriented x 3 HEENT: normal Breasts: engorged Nipples ? skin intact Lungs; clear to auscultation Heart: regular rhythm, no murmurs. Abd: Appropriately tender. BS+. Uterine fundus below umbilicus. No Fundal Tenderness. Perineum: normal lochia. Extremities: no edema, no cyanosis, no tenderness Urinary Catheter Management: Garcia: Cath Placed During This Visit: yes, but has since been removed by the nurse Reason for Continuing Indwelling Catheter: Decision to DC Catheter Urinary Catheter Date of Insertion: 12/25/23 Urinary Catheter Time of Insertion: 18:25 Date Urinary Catheter Removed: 12/27/23 Time Urinary Catheter Discontinued: 08:15 History History History 1 Term 0 Miscarriages/Ectopic Living Children Discharge Data Studies Completed and Pending Laboratory Results WBC 24.96 10^3/uL (3.29-11.43) H 12/26/23 20:37 RBC 2.92 10^6/uL (3.85-5.65) L 12/26/23 20:37 Hgb 8.80 g/dL (11.27-16.99) L 12/26/23 20:37 Hct 27.0 % (36-47) L 12/26/23 20:37 MCV 92.5 fl (85-98) 12/26/23 20:37 MCH 30.1 pg (27-33) 12/26/23 20:37 MCHC 32.6 g/dL (30-55) 12/26/23 20:37 RDW 13.8 % (12.1-15.1) 12/26/23 20:37 Plt Count 134 10^3/cmm (157-399) L 12/26/23 20:37 MPV 11.3 fL (7.4-10.4) H 12/26/23 20:37 Neut % (Auto) 92.1 % 12/26/23 09:00 Lymph % (Auto) 1.6 % 12/26/23 09:00 [place] % (Auto) 5.4 % 12/26/23 09:00 Eos % (Auto) 0.0 % 12/26/23 09:00 Baso % (Auto) 0.2 % 12/26/23 09:00 Neut # (Auto) 18.05 10^3/uL (1.8-7.7) H 12/26/23 09:00 Lymph # (Auto) 0.3 10^3/uL (0.8-4.8) L 12/26/23 09:00 [place] # (Auto) 1.1 10^3/uL (0.2-0.9) H 12/26/23 09:00 Eos # (Auto) 0.0 10^3/uL (0.0-0.8) 12/26/23 09:00 Baso # (Auto) 0.0 10^3/uL (0.0-0.1) 12/26/23 09:00 Nucleated RBC % (auto) 0 % 12/26/23 09:00 Nucleated RBCs # 0.0 /100WBC 12/26/23 09:00 Creatinine 0.8 mg/dL (0.5-0.9) 12/26/23 09:00 GFR Calculation 86.0 mL/min (90-130) L 12/26/23 09:00 Gentamicin Peak 3.9 ug/mL (2.0-8.0) 12/29/23 05:15 Gentamicin Trough 0.4 ug/mL (0.0-8.0) 12/29/23 02:10 Blood Type O Positive 12/23/23 23:05 Rho(D) Type Rh positive 12/23/23 23:05 Antibody Screen Negative 12/23/23 23:05 Vitals Last Vital Signs Temp 98.0 F 12/29/23 05:34 Pulse 71 12/29/23 05:34 Resp 16 12/29/23 05:34 BP 141/89 12/29/23 05:34 Pulse Ox 96 12/29/23 05:34 O2 Del Method Room Air 12/29/23 05:34 Results Labs OB ([facility]): Obstetrics US 09/20/23 Obstetrics US/Biophysical Profile 12/22/23 Blood Type O Positive 12/23/23 Antibody Screen Negative 12/23/23 Hct 27.0 % (36-47) L 12/26/23 Hgb 8.80 g/dL (11.27-16.99) L 12/26/23 Rho(D) Type Rh positive 12/23/23 Plt Count 134 10^3/cmm (157-399) L 12/26/23 Hep Bs Antigen Non-reactive (Nonreactive) 06/23/23 Hepatitis C Antibody Non-reactive (Nonreactive) 06/23/23 Rubella IgG Antibody 54.1 IU/mL (0.0-10.0) H 06/23/23 RPR Nonreactive (Nonreactive) 06/23/23 HIV 1&2 Ab & HIV 1 Ag Non-reactive (Non-Reactiv) 06/23/23 C.trachomatis RNA (TMA) Not detected (NOT DETECTED) 06/23/23 N.gonorrhoeae RNA (TMA) Not detected (NOT DETECTED) 06/23/23 T. vaginalis Amp RNA Not detected (NOT DETECTED) 06/23/23 Chlamydia/GC Comment See note 06/23/23 Cystic Fibrosis Screen N 07/19/23 Gest Glucose Tolerance 101 mg/dL (70-139) 09/22/23 Hemoglobin A1c 4.6 % (4.0-6.0) 06/23/23 Uric Acid 4.5 mg/dL (2.4-5.7) 12/22/23 Urine Opiates Screen Negative ng/mL (Negative) 06/23/23 Ur Barbiturates Screen Negative ng/mL (Negative) 06/23/23 Ur Phencyclidine Scrn Negative ng/mL (Negative) 06/23/23 Ur Amphetamines Screen Negative ng/mL (Negative) 06/23/23 U Benzodiazepines Scrn Negative ng/mL (Negative) 06/23/23 Urine Cocaine Screen Negative ng/mL (Negative) 06/23/23 U Marijuana (THC) Screen Negative ng/mL (Negative) 06/23/23 Micro Urine Specimen 06/23/23 Pap Smear Interpret See note 06/23/23 Discharge Plan Discharge Patient Disposition: Home Condition: Stable Prescriptions: New hydrocodone-acetaminophen 5-325 mg tablet 1 tab PO Q4H PRN (Reason: pain) Qty: 30 0RF acetaminophen 325 mg capsule 325 mg PO Q4H PRN (Reason: fever or pain) Qty: 60 0RF docusate sodium [Colace] 100 mg capsule 100 mg PO BID Qty: 60 0RF ferrous sulfate [Iron (ferrous sulfate)] 325 mg (65 mg iron) tablet 325 mg PO BID Qty: 60 0RF ibuprofen 800 mg tablet 800 mg PO TID PRN (Reason: pain) Qty: 60 0RF Continued valacyclovir [Valtrex] 1 gram tablet 1,000 mg PO DAILY Qty: 90 3RF promethazine 25 mg tablet 25 mg PO Q6H PRN (Reason: nausea and vomiting) Qty: 30 0RF DHA 200 mg capsule 200 mg PO DAILY pantoprazole [Protonix] 40 mg tablet,delayed release (DR/EC) 40 mg PO BID Qty: 60 1RF Discharge Orders: Discharge Order (Routine); Ordered 12/29/23 Ordered By: Brian Melendez Referrals: Brian Melendez MD [Physician] - 2 weeks Discharge Diet: Usual diet Discharge Activity: Limit activity as instructed Patient Instructions: Depression (DC), Opioid Safety (DC), Preeclampsia and Eclampsia After Delivery (GEN), Hemorrhage (DC), OB C, OB Discharge Report, OB Food/Drug Interaction Guide, Opioid Safety, OB Home Care, Abnormal Bleeding Activity Restrictions/Additional Instructions: 1. Please call [facility] on next working day to make your post-operative appointment in 2 weeks. 2. Please stay home until you come back to the clinic on first post-hospatilization check up. 3. Please follow instructions on your medications CAREFULLY. 4. If you have abdominal incision, do not cover it unless dressing is necessary because of drainage. OK to shower, but avoid bath. Leave steri-strips until they fall off. If they are still on one week after surgery, you may remove them. 5. If you had vaginal surgery or vaginal repair, Dr. Melendez may instruct you to take SITZ bath. 6. Yellow, blood tinged odorous vaginal discharge is usually normal after hysterectomy or vaginal surgeries. 7. No SEXUAL INTERCOURSE, tampons, or douches until you are completely released from the post-operative care. 8. Avoid constipation by eating right and maybe using some Metamucil or Milk of Magnesia. 9. All prescription refills are given during the working hours. Please do no wait till it runs out. Call the clinic at [phone] before your medication runs out. The clinic will get in touch with your doctor to prescribe medications if necessary. 10. Please remain within 40 mile radius from our hospital because emergencies do happen now and then during the post-operative period. 11. If you have stairs at home, take one step at a time slowly and minimize the number of trips. It helps to stay in one floor for the next few days. No lifting except what you can lift by one hand until you are released from the post-operative care. 12. Driving is discouraged until you are well healed. It may be 3-4 weeks before you feel strong enough to drive. You should be able to turn and look through the rear window without pain and you should be able to push the brake pedal very hard without pain before you drive. No fast rules, but SAFETY should be your primary concern. DO NOT drive if you are on sedating medications such as narcotics. 13. Call the clinic (during working hours) to make urgent appointment or go to the Emergency room, if any of the following occurs: i. Vaginal bleeding becomes heavy, more than a period. ii. Incision becomes red and sore, or drains pus. iii. Your TEMPERATURE is over 100.4F or you have chill. iv. IV site becomes red and swollen (a little ``knot?? is usually OK) v. Persistent nausea and vomiting vi. Persistent constipation or diarrhea vii. Rash or allergic reaction to medications. Discharge Attestations FLAKE CUTTER OPERATOR Time Spent in Discharge Care*: greater than 30 min Coding Level of Care Code Acute Code for Chg Fwd Diagnoses Term Z34.90 Failure to progress in first stage of labor O63.0 Chorioamnionitis in third trimester, single or unspecified fetus O41.1230 Fetus number: single or unspecified fetus Trimester: third trimester
[2023-12-29] MEDS: ferrous sulfate EC 325 mg Tablet PO (08:43)
[2023-12-29] MEDS: docusate sodium 100 mg Capsule PO (08:43)
[2023-12-29] MEDS: PRENATAL VIT NO.130/IRON/FOLIC 1 EACH TABLET PO (08:44)
[2023-12-29] MEDS: ibuprofen 800 mg tablet PO (08:44)
[2023-12-29 09:25] VITALS: BP 146/93; PULSE 78; RESP 18; TEMP 36.8
[2023-12-29 09:40] VITALS: BP 150/93; PULSE 80; RESP 16
[2023-12-29 10:00] VITALS: BP 150/93; PULSE 80; RESP 16; TEMP 36.8; O2SAT 96
== END 2023-12-29 10:03 | disposition home or self-care (01) | DRG 786 ==
LOC: OPOB 12-24 10:22 → OBGYN 12-24 10:23
PROVIDERS: Admitting Provider Obstetrics & Gynecology; PCP Family Medicine; Visit Provider Obstetrics & Gynecology
PROC: (CPT 59514; principal; 2023-12-26 05:45)
DX: O14.94 Unspecified pre-eclampsia, complicating childbirth (principal); O41.1230 Chorioamnionitis, third trimester, not applicable or unspecified; O61.0 Failed medical induction of labor; O76 Abnormality in fetal heart rate and rhythm complicating labor and delivery; Z3A.39 39 weeks gestation of pregnancy; Z37.0 Single live birth
CPT/HCPCS: 36415; 51702; 59409; 80170; 82565; 85025; 85027; 86850; 86900; 96372; 98960; C9290; G0378; J0290; J0330; J1100; J1580; J1885; J2270; J2274; J2371; J2405; J2550; J2590; J2704; J2765; J2795; J3010; J3490; J7030; J7120; J7121

== ENCOUNTER 2024-01-18 21:56 | Emergency (ER) | payer BC, MEDICAID, SELFPAY ==
[2024-01-18 21:57] VITALS: BP 143/100; PULSE 105; RESP 16; TEMP 36.6; O2SAT 100; BMI 24.1
[2024-01-18 22:23] LABS: Basophils % 0.4 %; Eosinophils # 0.1 10^3/uL (0.0-0.8); Eosinophils % 1.9 %; Hematocrit 37.8 % (36-47); Lymphocytes # 2.3 10^3/uL (0.8-4.8); Lymphocytes % 31.5 %; Mean Corpuscular Hemoglobin 29.5 pg (27-33); Mean Corpuscular Volume 95.2 fl (85-98); Mean Platelet Volume 10.7 fL (7.4-10.4); Monocytes # 0.4 10^3/uL (0.2-0.9); Monocytes % 5.8 %; Neutrophils # 4.33 10^3/uL (1.8-7.7); Neutrophils % 60.3 %; Nucleated Red Blood Cells % 0 %; Platelet Count 266 10^3/cmm (157-399); Red Blood Count 3.97 10^6/uL (3.85-5.65); Red Cell Distribution Width 13.5 % (12.1-15.1)
--- NOTE | 2024-01-18 22:26 | ED_ITS ---
HPI - Female Genitourinary 2 General: Chief complaint: Vaginal Bleeding Stated complaint: Bleeding Time Seen by Provider: 01/18/24 22:25 History of Present Illness: 28-year-old female comes in today for co ncerns of vaginal bleeding. Patient has a history of having a done 3 months ago. Patient appears nontoxic. Patient appears in no pain. Review of Systems 2 General: Reports: 10 or more systems reviewed and unremarkable except in HPI and below PFSH ED 2 PFSH: Medical History (Updated 01/18/24 @ 22:39 by VIET Del Angel) Genital herpes Anxiety On and off since the ulnar deviation and hydroxyzine helps her sleep. No pertinent past medical history Denies diabetes, asthma, hypertension, seizures, DVT/PE PCP: [facility] Surgical History (Updated 01/18/24 @ 17:07 by Kasie Huber APN, JERMAINE) H/O section (~12/26/23) LTCS for preeclampsia with failed induction due to failure to progress in the first stage of labor and chorioamnionitis. Performed by Dr. Melendez at [facility] S/P appendectomy Laparoscopic procedure in [address] Pereira at [facility]. Family History Father Hypertension Diabetes Mother Hypertension Ovarian cancer Grandmother Colon cancer Maternal, age at diagnosis unknown. at age 82. Denies family history of Prostate cancer Heart disease Hyperlipidemia Breast cancer Uterine cancer Thyroid disease Stroke Social History Smoking and tobacco/nicotine status: never used tobacco/nicotine Physical Exam 2 Const: COMMON NORMALS: alert HENMT: COMMON NORMALS: normocephalic HEAD & SCALP: normocephalic Neck/C-Spine: COMMON NORMALS: full ROM Resp: COMMON NORMALS: normal respiratory effort GI: COMMON NORMALS: Soft to palpation PALPATION: Yes Soft to palpation Back/Pelvis: COMMON NORMALS: thoracic and lumbar spine normal to inspection Extremity: COMMON NORMALS: full ROM Neuro: SENSORIUM/ORIENTATION: Yes alert Skin: COMMON NORMALS: turgor normal GENERAL SKIN EXAM: turgor normal Course 2 Vital Signs: Vital signs: Vital Signs Temperature 97.8 F 01/18/24 21:57 Pulse Rate 76 01/18/24 23:19 Respiratory Rate 16 01/18/24 23:19 Blood Pressure 131/64 01/18/24 23:19 Pulse Oximetry 96 01/18/24 23:19 Oxygen Delivery Me thod Room Air 01/18/24 21:57 MDM - Female Medical Decision Making 28[facility]. Patient reports that she had been passing some clots and then had a large amount of bleeding. Patient appears nontoxic. Patient came into the ER for evaluation. Patient is 3 weeks after . Differential diagnosis hemorrhage, abnormal bleeding, anxiety about health. CBC noted a hemoglobin of 11.7. CMP was unremarkable. Patient was given 600 mg of TXA per IV and will be continued on oral medication 3 times a day for 5 days. Patient was recommended to follow-up with MEDIA INTERN's office in the morning for further evaluation and treatment. Patient was discharged home in stable condition. Lab Data 01/18/24 22:17 01/18/24 22:17 Laboratory Results WBC 7.20 10^3/uL (3.29-11.43) 01/18/24 22:17 RBC 3.97 10^6/uL (3.85-5.65) 01/18/24 22:17 Hgb 11.70 g/dL (11.27-16.99) 01/18/24 22:17 Hct 37.8 % (36-47) 01/18/24 22:17 MCV 95.2 fl (85-98) 01/18/24 22:17 MCH 29.5 pg (27-33) 01/18/24 22:17 MCHC 31.0 g/dL (30-55) 01/18/24 22:17 RDW 13.5 % (12.1-15.1) 01/18/24 22:17 Plt Count 266 10^3/cmm (157-399) 01/18/24 22:17 MPV 10.7 fL (7.4-10.4) H 01/18/24 22:17 Neut % (Auto) 60.3 % 01/18/24 22:17 Lymph % (Auto) 31.5 % 01/18/24 22:17 [place] % (Auto) 5.8 % 01/18/24 22:17 Eos % (Auto) 1.9 % 01/18/24 22:17 Baso % (Auto) 0.4 % 01/18/24 22:17 Neut # (Auto) 4.33 10^3/uL (1.8-7.7) 01/18/24 22:17 Lymph # (Auto) 2.3 10^3/uL (0.8-4.8) 01/18/24 22:17 [place] # (Auto) 0.4 10^3/uL (0.2-0.9) 01/18/24 22:17 Eos # (Auto) 0.1 10^3/uL (0.0-0.8) 01/18/24 22:17 Baso # (Auto) 0.0 10^3/uL (0.0-0.1) 01/18/24 22:17 Nucleated RBC % (auto) 0 % 01/18/24 22:17 Nucleated RBCs # 0.0 /100WBC 01/18/24 22:17 Sodium 138 mmol/L (136-145) 01/18/24 22:17 Potassium 3.8 mmol/L (3.5-5.1) 01/18/24 22:17 Chloride 100 mmol/L (98-107) 01/18/24 22:17 Carbon Dioxide 24 mmol/L (22-29) 01/18/24 22:17 Anion Gap 17.8 (5-19) 01/18/24 22:17 BUN 12 mg/dL (6-20) 01/18/24 22:17 Creatinine 0.8 mg/dL (0.5-0.9) 01/18/24 22:17 GFR Calculation 86.0 mL/min (90-130) L 01/18/24 22:17 Glucose 112 mg/dL (65-115) 01/18/24 22:17 Calculated Osmolality 287 mOsm/kg (285-295) 01/18/24 22:17 Calcium 9.3 mg/dL (8.5-10.5) 01/18/24 22:17 Total Bilirubin 0.3 mg/dL (0.15-1.2) 01/18/24 22:17 AST 22 U/L (0-32) 01/18/24 22:17 ALT 17 U/L (0-33) 01/18/24 22:17 Alkaline Phosphatase 93 U/L (35-105) 01/18/24 22:17 Total Protein 7.3 g/dL (6.6-8.7) 01/18/24 22:17 Albumin 4.2 g/dL (3.5-5.2) 01/18/24 22:17 Globulin 3.1 g/dL (1.3-4.6) 01/18/24 22:17 Blood Type O Positive 01/18/24 22:17 Rho(D) Type Rh positive 01/18/24 22:17 No radiology studies performed this visit Discharge Plan Discharge Patient Disposition: Home Clinical Impression: bleeding Qualifiers: hemorrhage type: unspecified Qualified Code(s): O72.1 - Other immediate hemorrhage Condition: Stable Prescriptions: New tranexamic acid 650 mg tablet 650 mg PO TID Qty: 15 0RF No Action valacyclovir [Valtrex] 1 gram tablet 1,000 mg PO DAILY Qty: 90 3RF DHA 200 mg capsule 200 mg PO DAILY pantoprazole [Protonix] 40 mg tablet,delayed release (DR/EC) 40 mg PO BID Qty: 60 1RF sertraline 50 mg tablet 50 mg PO DAILY Qty: 30 3RF Rx Instructions: take 1/2 tab daily x 7 days then increase to 1 full tab daily ibuprofen 800 mg tablet 800 mg PO TID PRN (Reason: pain) Qty: 60 0RF Iron (ferrous sulfate) 325 mg (65 mg iron) tablet 325 mg PO BID Qty: 60 0RF acetaminophen 325 mg capsule 325 mg PO Q4H PRN (Reason: fever or pain) Qty: 60 0RF Discharge Orders: Discharge ED (Routine); Ordered 01/18/24 Ordered By: Darrell Cortes Referrals: Kris Salomon MD [Primary Care Provider] - Patient Instructions: Abnormal Bleeding Activity Restrictions/Additional Instructions: Follow-up with [facility] office in the morning. Return to ER for fever greater than 100.4 or new concerns. Thank you for choosing [facility] for your healthcare needs today. Please realize that you were seen in the emergency department and that we are providing you with an emergency medical screening exam and this may not be a complete and all exclusive of all testing and/or medical workup we may need to determine your element or severity of your illness. It is very important that you follow-up as instructed with your primary care provider or specialist for the additional evaluation and to discuss your medical treatment plan. You may return to the emergency department should you have concerns or if your condition changes or worsens in any way. Coding Level of Care Code ED Auto Body Straightener for Jossy Pablo
[2024-01-18 22:39] LABS: Alanine Aminotransferase 17 U/L (0-33); Albumin Level 4.2 g/dL (3.5-5.2); Alkaline Phosphatase 93 U/L (35-105); Aspartate Amino Transferase 22 U/L (0-32); Blood Urea Nitrogen 12 mg/dL (6-20); Calcium 9.3 mg/dL (8.5-10.5); Carbon Dioxide 24 mmol/L (22-29); Chloride 100 mmol/L (98-107); Creatinine Clr Calc Pharmacy 100.8999; Globulin 3.1 g/dL (1.3-4.6); Glucose 112 mg/dL (65-115); Osmolality Calculated 287 mOsm/kg (285-295); Sodium 138 mmol/L (136-145); Total Bilirubin 0.3 mg/dL (0.15-1.2); Total Protein 7.3 g/dL (6.6-8.7)
[2024-01-18 22:40] LABS: Anion Gap 17.8 (5-19); Potassium 3.8 mmol/L (3.5-5.1)
[2024-01-18] MEDS: tranexamic acid 1,000 MG/100 ML PREMIX 600 MG IV (22:48)
[2024-01-18 23:19] VITALS: BP 131/64; PULSE 76; RESP 16; O2SAT 96
[2024-01-18 23:28] VITALS: BP 131/64; PULSE 79; RESP 16; O2SAT 96
== END 2024-01-18 23:15 | disposition home or self-care (01) ==
PROVIDERS: Emergency Medicine; Emergency Provider Nurse Practitioner Family; PCP Family Medicine
DX: O72.1 Other immediate postpartum hemorrhage (principal)
CPT/HCPCS: 80053; 85025; 86850; 86900; 96365; 99284

== ENCOUNTER → 2025-05-16 16:00 | Outpatient (BNVA) | payer BC, MEDICAID, SELFPAY | PROVIDERS: PCP Family Medicine; Visit Provider Nurse Practitioner Women's Health | DX: O20.0 Threatened abortion (principal) | CPT/HCPCS: 84315; 84702; 85025; 87086; 87491; 87591; 87661 ==

== ENCOUNTER → 2025-05-19 08:29 | Outpatient (BNVA) | payer BC, MEDICAID, SELFPAY | PROVIDERS: PCP Family Medicine; Visit Provider Nurse Practitioner Women's Health | DX: O20.0 Threatened abortion (principal) | CPT/HCPCS: 84702 ==

== ENCOUNTER 2025-05-21 09:22 | Outpatient (CLI) | payer BC, MEDICAID, SELFPAY | END 2025-05-21 09:23 | disposition home or self-care (01) | LOC: LAB 09:25 | PROVIDERS: Visit Provider Nurse Practitioner Women's Health | DX: O20.0 Threatened abortion (principal) | CPT/HCPCS: 36415; 84702 ==

== ENCOUNTER 2025-05-21 16:08 | Outpatient (CLI) | payer MEDICAID, SELFPAY ==
--- NOTE | 2025-05-21 17:00 | USR_ITS ---
PROCEDURE INFORMATION: Exam: US , Transvaginal Exam date and time: 05/21/2025 4:35 PM Age: 30 years old Clinical indication: Lmp or gestational age (in weeks): 03/31/2025; Other: Bleeding; ; Additional info: O20.0 - threatened , spoke with viviana @ [facility] and no pa needed for cpt LABS AND CLINICAL REPORTS: Choriogonadotropin in serum (Serum HCG): 1585 mIU/mL Last menstrual period start date: 03/31/2025 Gestational age (Established): 7 w 2 d Estimated due date (Established): 01/05/2026 TECHNIQUE: Imaging protocol: Real-time transvaginal obstetrical ultrasound of the maternal pelvis with image documentation. Transvaginal imaging was used for better evaluation of the fetus, adnexa, and/or cervix. COMPARISON: US OB BPP wo NST [id number] 12/22/2023 10:40 AM FINDINGS: Gestation: Intrauterine gestational sac noted. No evidence of pole or yolk. Small subchorionic hemorrhage noted. Fluid is noted in the endocervical canal. BIOMETRY: Mean sac diameter: 0.7 cm. EGA (MSD) is 5 w 3 d MATERNAL: Cervix: Cervical length measures 2.9 cm. Right ovary/adnexa: A small right ovarian cyst is noted. Left ovary/adnexa: A tubular structure which is fluid-filled is noted in the left adnexa suggesting hydrosalpinx. US/US OB transvaginal [id number] IMPRESSION: 1. Intrauterine gestational sac with subchorionic hemorrhage 2. Gestational age around 5 weeks 3 days. No pole is noted at this time. 3. Fluid in the endocervical canal may represent hemorrhage 4. Small right ovarian cyst 5. Probable left hydrosalpinx
== END 2025-05-21 16:09 | disposition home or self-care (01) ==
LOC: RAD 16:08
PROVIDERS: Visit Provider Nurse Practitioner Women's Health
DX: O20.9 Hemorrhage in early pregnancy, unspecified (principal); N93.9 Abnormal uterine and vaginal bleeding, unspecified; N88.8 Other specified noninflammatory disorders of cervix uteri; N83.291 Other ovarian cyst, right side
CPT/HCPCS: 76817

== ENCOUNTER 2025-05-23 10:05 | Outpatient (CLI) | payer BC, MEDICAID, SELFPAY | END 2025-05-23 10:06 | disposition home or self-care (01) | LOC: LAB 10:07 | PROVIDERS: Visit Provider Nurse Practitioner Women's Health | DX: O20.0 Threatened abortion (principal) | CPT/HCPCS: 36415; 84702 ==

== ENCOUNTER 2025-05-27 09:47 | Outpatient (CLI) | payer BC, MEDICAID, SELFPAY | END 2025-05-27 09:48 | disposition home or self-care (01) | PROVIDERS: Visit Provider Nurse Practitioner Women's Health | DX: O20.0 Threatened abortion (principal) | CPT/HCPCS: 36415; 84702 ==

== ENCOUNTER 2025-06-02 11:25 | Outpatient (CLI) | payer BC, MEDICAID, SELFPAY | END 2025-06-02 11:26 | disposition home or self-care (01) | LOC: LAB 11:27 | PROVIDERS: Visit Provider Nurse Practitioner Women's Health | DX: O20.0 Threatened abortion (principal) | CPT/HCPCS: 36415; 84702 ==